=== PATIENT | male | born 1960 | race Asian ===

== ENCOUNTER 2017-09-27 10:12 | Inpatient (IN) | payer OTHER ==
[~2017-09-27] VITALS: Ht 172.7 cm; Wt 87.8 kg
[~2017-09-27 10:12] MED LIST: ALLOPURINOL100 MG PO; BENAZEPRIL20 M1 PO; BG MC; COL100 PO; FERL PO; LEVAQUIN750 MG PO; LOPID600 MG PO; METFORMIN ER500 M1 PO; PRAVACHOL20 MG PO; PRI20 PO; THERAGRAN-M1 TA4 PO
[2017-09-27 10:19] VITALS: Ht 172.7 cm; Wt 87.8 kg
[2017-09-27 11:17] LABS: BASOPHIL % 0.5 % (0-2); PLATELET COUNT 267 x10^3mcL (130-400); RED CELL DISTRIBUTION WIDTH 13.2 % (11.5-14.5)
[2017-09-27 11:28] LABS: CALCIUM 8.7 mg/dL (8.5-10.1); CARBON DIOXIDE 23.7 mmol/L (21-32); CHLORIDE SERUM 104 mmol/L (98-107); CREATININE SERUM 1.1 mg/dL (0.7-1.3); GFR1 > 60 mL/min; GLUCOSE SERUM 122 mg/dL (74-106); POTASSIUM SERUM 3.6 mmol/L (3.5-5.1); SODIUM SERUM 140 mmol/L (136-145)
[2017-09-27 11:39] LABS: ALBUMIN 3.7 g/dL (3.4-5.0); ALKALINE PHOSPHATASE 105 U/L (46-116); AST/SGOT 63 U/L (15-37); BILIRUBIN TOTAL 0.5 mg/dL (0.20-1.00); TOTAL PROTEIN, SERUM 7.6 g/dL (6.4-8.2)
[2017-09-27 11:51] LABS: ALT/SGPT 72 U/L (16-63)
[2017-09-27 13:00] VITALS: BP 160/102
[2017-09-27 14:22] LABS: AMYLASE 63 U/L (25-115); HDL CHOLESTEROL 48 mg/dL (40-60); LIPASE 315 IU/L (73-393); MAGNESIUM 2.1 mg/dL (1.8-2.4); PHOSPHOROUS 2.4 mg/dL (2.5-4.9)
[2017-09-27 14:36] LABS: T3 TOTAL 0.88 ng/mL
[2017-09-27 14:38] LABS: CHOLESTEROL 253 mg/dL (<200); CHOLESTEROL/HDL RATIO 5.3; TRIGLYCERIDES 538 mg/dL (<150)
[2017-09-27 14:57] LABS: FREE T4 0.98 ng/dL (0.76-1.46); FREE THYROXINE INDEX 2.3 ug/dL (1.4-4.5); T4(THYROXINE) 6.5 ug/dL (4.7-13.3)
[2017-09-27 20:53] VITALS: BP 142/87
[2017-09-27 22:42] LABS: microscopic required? YES; urine erythrocyte 3+ (NEGATIVE)
[2017-09-27 22:51] LABS: AMPHETAMINE QUAL UR NONE DETECTED (See below)
[2017-09-28 05:15] VITALS: BP 148/93
[2017-09-28 06:33] LABS: BASOPHIL % 0.8 % (0-2); PLATELET COUNT 249 x10^3mcL (130-400); RED CELL DISTRIBUTION WIDTH 13.7 % (11.5-14.5)
[2017-09-28 06:53] LABS: CALCIUM 8.6 mg/dL (8.5-10.1); CARBON DIOXIDE 20.2 mmol/L (21-32); CHLORIDE SERUM 107 mmol/L (98-107); CREATININE SERUM 1.1 mg/dL (0.7-1.3); GFR1 > 60 mL/min; GLUCOSE SERUM 132 mg/dL (74-106); PHOSPHOROUS 3.3 mg/dL (2.5-4.9); POTASSIUM SERUM 3.7 mmol/L (3.5-5.1); SODIUM SERUM 141 mmol/L (136-145)
[2017-09-28 08:57] VITALS: BP 155/91
[2017-09-28 14:41] VITALS: BP 150/83
[2017-09-28 17:46] VITALS: BP 140/89
[2017-09-28 21:17] VITALS: BP 124/83
[2017-09-29 06:26] VITALS: BP 157/98
[2017-09-29 06:31] LABS: BASOPHIL % 0.4 % (0-2); PLATELET COUNT 272 x10^3mcL (130-400); RED CELL DISTRIBUTION WIDTH 13.5 % (11.5-14.5)
[2017-09-29 06:33] LABS: CALCIUM 8.6 mg/dL (8.5-10.1); CARBON DIOXIDE 25.3 mmol/L (21-32); CHLORIDE SERUM 107 mmol/L (98-107); CREATININE SERUM 1.1 mg/dL (0.7-1.3); GFR1 > 60 mL/min; GLUCOSE SERUM 121 mg/dL (74-106); MAGNESIUM 2.1 mg/dL (1.8-2.4); PHOSPHOROUS 3.3 mg/dL (2.5-4.9); POTASSIUM SERUM 3.9 mmol/L (3.5-5.1); SODIUM SERUM 141 mmol/L (136-145)
[2017-09-29 08:11] VITALS: BP 151/94
[2017-09-29] MEDS ORDERED: LOV40I SQ (16:27)
[2017-09-29] MEDS ORDERED: COU5 PO (16:28)
[2017-09-29] MEDS ORDERED: ZES10 PO (16:29)
[2017-09-29 16:54] VITALS: BP 173/100
[2017-09-29 18:30] VITALS: BP 171/100
[2017-09-29 19:21] VITALS: BP 128/96
== END 2017-09-29 20:39 | disposition home or self-care (01) | DRG 300 ==
LOC: ED 10:12 → DU 11:40
PROVIDERS: Emergency Medicine; Family Medicine; Internal Medicine
DX: I82.411 Acute embolism and thrombosis of right femoral vein (principal); D68.59 Other primary thrombophilia; E87.1 Hypo-osmolality and hyponatremia; I82.431 Acute embolism and thrombosis of right popliteal vein; I10 Essential (primary) hypertension; E78.5 Hyperlipidemia, unspecified; M10.9 Gout, unspecified; R74.0 Nonspecific elevation of levels of transaminase and lactic acid dehydrogenase [LDH]; F17.210 Nicotine dependence, cigarettes, uncomplicated; E78.00 Pure hypercholesterolemia, unspecified; R73.03 Prediabetes; R31.9 Hematuria, unspecified; E83.39 Other disorders of phosphorus metabolism; K76.0 Fatty (change of) liver, not elsewhere classified; K80.20 Calculus of gallbladder without cholecystitis without obstruction; N20.0 Calculus of kidney; Z68.30 Body mass index [BMI] 30.0-30.9, adult; Z91.041 Radiographic dye allergy status; Z83.3 Family history of diabetes mellitus; Z82.49 Family history of ischemic heart disease and other diseases of the circulatory system
CPT/HCPCS: 83880; 84439; 85378; J1644; J1650; J3490; J7030; Q0092